=== PATIENT | male | born 1950 | race Caucasian/White ===

== ENCOUNTER 2018-05-21 10:09 | Emergency (ER) | payer OTHER ==
--- NOTE | 2018-05-21 10:39 | EDPHY ---
H & P Time Seen by Provider: 05/21/18 10:17 HPI/ROS: HPI Left flank pain. 67-year-old male by private vehicle with family member. Patient presents with complaint of left flank pain which has been ongoing for at least the last month. He was seen in the emergency department in [facility] on May 09. He had a workup including urinalysis and basic labs as well as an upright abdominal x-ray. This was unremarkable. He was discharged. He comes to our emergency department stating that he wants a 2nd opinion. He tells me on examination that he has been urinating normally. Denies gross hematuria. He has not had a fever. No history of trauma. He does have a history of prior kidney stones. He states also that he is scheduled to see Dr. Rosales of the Urology service this coming week for a cystoscopy and further evaluation. In going further injuries history it sounds like he has had this problem ongoing for many months. He has had multiple CT scans, the last 1 in late April, on April 29 specifically. He has not had a fever. He denies any other complaints. ROS: Constitutional: No fever, no chills. No weakness. Eyes: No discharge. No changes in vision. ENT: No sore throat. No nasal congestion or rhinorrhea. Respiratory: No cough. No shortness of breath. Cardiac: No chest pain, no palpitations. Gastrointestinal: No abdominal pain, no vomiting, no diarrhea. Genitourinary: No hematuria. No dysuria or increased frequency with urination. Musculoskeletal: As above. No neck pain. No myalgias or arthralgias. Skin: No rashes. Neurological: No headache. No focal weakness or altered sensation. Past medical history: GERD, enlarged prostate, kidney stones. As above. Social history: Nonsmoker. Here with disabled family member. No alcohol. Physical Exam: General Appearance: Alert, no distress. He appears very comfortable. This patient is responding to questions appropriately and in full sentences. This patient appears well-hydrated and well-nourished. Eyes: Pupils equal and round no pallor or injection. No lid edema, erythema or injection. Respiratory: There are no retractions, lungs are clear to auscultation with good air movement bilaterally. Cardiovascular: Regular rate and rhythm. No murmur. Gastrointestinal: Abdomen is soft and nontender, no masses, bowel sounds normal. No focal tenderness at McBurney's point. No Restrepo sign. Neurological: Motor sensory function is grossly intact. Cranial nerves are normal. Gait is normal. Skin: Warm and dry, no rashes. Musculoskeletal: Neck is supple and nontender. No midline cervical, thoracic, lumbar tenderness on palpation. No tenderness on palpation of the bilateral flanks and CVAs. Extremities are symmetrical. All joints range without pain or impingement. Psychiatric: No agitation. No depression. Database: EKG: Imaging: Procedures: Emergency department course: Vital signs reviewed and are normal. An IV was established in triage. I explained to him at this time but I did not feel a CT scan was warranted given his recent x-rays and previous CTs. He is in agreement. I will check his renal function and a urinalysis. 11:55 a.m., the patient was re-evaluated. He is resting comfortably at this time now. His vital signs were reviewed and are normal. I discussed the results of his urinalysis and blood work. These are all unremarkable. He feels comfortable being discharged at this time. He has follow-up with his urologist, Dr. Rosales, this coming WednesdayMay 25. He has been instructed to follow up with his urologist as scheduled. He can have his CT scan from April 29 reviewed at that time. I do not feel he requires emergent imaging currently. Repeat abdominal exam is soft, nontender nondistended. Return to emergency department precautions were reviewed with him thoroughly. He understands the importance of his follow-up. He was discharged in good condition. Differential Diagnosis: The differential diagnosis on this patient includes but is not limited to history of kidney stones, chronic left flank pain. Ureterolithiasis, aortic aneurysm, pyelonephritis unlikely. This represents a partial list of diagnoses considered. These considerations are based on history, physical exam, past history, reassessment and diagnostic testing. Smoking Status: Never smoked Constitutional: Initial Vital Signs Temperature (C) 36.5 C 05/21/18 10:14 Heart Rate 75 05/21/18 10:14 Respiratory Rate 18 05/21/18 10:14 Blood Pressure 124/76 H 05/21/18 10:14 O2 Sat (%) 95 05/21/18 10:14 O2 Delivery Mode Room Air Allergies/Adverse Reactions: Sulfa (Sulfonamide Antibiotics) Allergy (Verified 05/21/18 10:10) Home Medications: Medication Instructions Recorded Omeprazole 40 mg PO 05/21/18 Medical Decision Making - Data Points Laboratory Results: Laboratory Results 05/21/18 10:30 05/21/18 10:30 05/21/18 05/21/18 05/21/18 10:30 10:30 10:25 WBC 9.92 10^3/uL H 10^3/uL (3.80-9.50) RBC 4.84 10^6/uL 10^6/uL (4.40-6.38) Hgb 15.5 g/dL g/dL (13.7-17.5) Hct 44.0 % % (40.0-51.0) MCV 90.9 fL fL (81.5-99.8) MCH 32.0 pg pg (27.9-34.1) MCHC 35.2 g/dL g/dL (32.4-36.7) RDW 12.4 % % (11.5-15.2) Plt Count 201 10^3/uL 10^3/uL (150-400) MPV 9.3 fL fL (8.7-11.7) Neut % (Auto) 79.3 % H % (39.3-74.2) Lymph % (Auto) 12.4 % L % (15.0-45.0) Gove % (Auto) 7.0 % % (4.5-13.0) Eos % (Auto) 0.8 % % (0.6-7.6) Baso % (Auto) 0.3 % % (0.3-1.7) Nucleat RBC Rel Count 0.0 % % (0.0-0.2) Absolute Neuts (auto) 7.87 10^3/uL H 10^3/uL (1.70-6.50) Absolute Lymphs (auto) 1.23 10^3/uL 10^3/uL (1.00-3.00) Absolute Monos (auto) 0.69 10^3/uL 10^3/uL (0.30-0.80) Absolute Eos (auto) 0.08 10^3/uL 10^3/uL (0.03-0.40) Absolute Basos (auto) 0.03 10^3/uL 10^3/uL (0.02-0.10) Absolute Nucleated RBC 0.00 10^3/uL 10^3/uL (0-0.01) Immature Gran % 0.2 % % (0.0-1.1) Immature Gran # 0.02 10^3/uL 10^3/uL (0.00-0.10) Sodium 136 mEq/L mEq/L (135-145) Potassium 4.2 mEq/L mEq/L (3.3-5.0) Chloride 97 mEq/L mEq/L (97-110) Carbon Dioxide 27 mEq/l mEq/l (22-31) Anion Gap 12 mEq/L mEq/L (8-16) BUN 8 mg/dL mg/dL (7-23) Creatinine 0.7 mg/dL mg/dL (0.7-1.3) Estimated GFR > 60 Glucose 105 mg/dL H mg/dL (70-100) Calcium 9.6 mg/dL mg/dL (8.5-10.4) Urine Color PALE YELLOW Urine Appearance CLEAR Urine pH 7.0 (5.0-7.5) Ur Specific [place] 1.001 L (1.002-1.030) Urine Protein NEGATIVE (NEGATIVE) Urine Ketones NEGATIVE (NEGATIVE) Urine Blood NEGATIVE (NEGATIVE) Urine Nitrate NEGATIVE (NEGATIVE) Urine Bilirubin NEGATIVE (NEGATIVE) Urine Urobilinogen NEGATIVE EU EU (0.2-1.0) Ur Leukocyte Esterase NEGATIVE (NEGATIVE) Urine RBC 1-3 /hpf /hpf (0-3) Urine WBC 1-3 /hpf /hpf (0-3) Ur Epithelial Cells NONE SEEN /lpf /lpf (NONE-1+) Ur Renal Epithelial Cell Urine Crystals Ammonium Urate Crystals Calcium Carbonate Cryst Calcium Phosphate Cryst Calcium Oxalate Crystal Leucine Crystals Cystine Crystals Uric Acid Crystals Triple Phos Crystals Sulfonamide Crystals Cholesterol Crystals Tyrosine Crystals Bilirubin Crystals Amorphous Sediment Urine Bacteria Epithelial Casts Fatty Casts Hyaline Casts Granular Casts Waxy Casts Broad Casts RBC Casts WBC Casts Urine Mucus TRACE /lpf /lpf (NONE-1+) Urine Trichomonas Urine Yeast Urine Sperm Ur Oval Fat Bodies Ur Free Fat Droplets Urine Glucose NEGATIVE (NEGATIVE) Urine Comment 05/21/18 10:00 WBC RBC Hgb Hct MCV MCH MCHC RDW Plt Count MPV Neut % (Auto) Lymph % (Auto) Gove % (Auto) Eos % (Auto) Baso % (Auto) Nucleat RBC Rel Count Absolute Neuts (auto) Absolute Lymphs (auto) Absolute Monos (auto) Absolute Eos (auto) Absolute Basos (auto) Absolute Nucleated RBC Immature Gran % Immature Gran # Sodium Potassium Chloride Carbon Dioxide Anion Gap BUN Creatinine Estimated GFR Glucose Calcium Urine Color Urine Appearance Urine pH Ur Specific La[place] Urine Protein Urine Ketones Urine Blood Urine Nitrate Urine Bilirubin Urine Urobilinogen Ur Leukocyte Esterase Urine RBC Cancelled Urine WBC Cancelled Ur Epithelial Cells Cancelled Ur Renal Epithelial Cell Cancelled Urine Crystals Cancelled Ammonium Urate Crystals Cancelled Calcium Carbonate Cryst Cancelled Calcium Phosphate Cryst Cancelled Calcium Oxalate Crystal Cancelled Leucine Crystals Cancelled Cystine Crystals Cancelled Uric Acid Crystals Cancelled Triple Phos Crystals Cancelled Sulfonamide Crystals Cancelled Cholesterol Crystals Cancelled Tyrosine Crystals Cancelled Bilirubin Crystals Cancelled Amorphous Sediment Cancelled Urine Bacteria Cancelled Epithelial Casts Cancelled Fatty Casts Cancelled Hyaline Casts Cancelled Granular Casts Cancelled Waxy Casts Cancelled Broad Casts Cancelled RBC Casts Cancelled WBC Casts Cancelled Urine Mucus Cancelled Urine Trichomonas Cancelled Urine Yeast Cancelled Urine Sperm Cancelled Ur Oval Fat Bodies Cancelled Ur Free Fat Droplets Cancelled Urine Glucose Urine Comment Cancelled Departure - Departure Disposition: Home, Routine, Self-Care Clinical Impression: Left flank pain Condition: Good Instructions: Flank Pain (ED) Additional Instructions: Read and follow provided instructions. Follow-up with your urologist as scheduled on WednesdayMay 25 without fail. Ibuprofen dosin mg every 6 hours with meals for the next 3 days only. Take only as needed for pain. Return to the emergency department for worsening pain, fever, vomiting or other serious concerns. Referrals: Dima Rosales MD [Medical Doctor] - As per Instructions
[2018-05-21 11:04] LABS: PLATELET COUNT 201 10^3/uL (150-400)
[2018-05-21 12:24] VITALS: BP 119/73
== END 2018-05-21 12:19 | disposition home or self-care (01) ==
DX: R10.30 Lower abdominal pain, unspecified (principal)